=== PATIENT | male | born 1965 | race Caucasian/White ===

== ENCOUNTER 2021-03-04 11:09 | Emergency (ER) | payer MEDICARE ==
[~2021-03-04] VITALS: Ht 177.8 cm
[2021-03-04] MEDS ORDERED: CEPHALEXIN500 M1 PO (13:10)
== END 2021-03-04 13:16 | disposition home or self-care (01) ==
LOC: ED 11:09
DX: S61.432A Puncture wound without foreign body of left hand, initial encounter (principal); W25.XXXA Contact with sharp glass, initial encounter; Y93.89 Activity, other specified; Y92.89 Other specified places as the place of occurrence of the external cause; Y99.8 Other external cause status